=== PATIENT | female | born 1995 | race Caucasian/White ===

== ENCOUNTER 2017-06-17 11:34 | Observation (INO) ==
[2017-06-17] MEDS ORDERED: PHENERGAN IM ONE (13:56)
[2017-06-17 15:14] LABS: UR AMPHETAMINES QUAL NONE DETECTED (NONE DETECT); UR BARBITUATES QUAL NONE DETECTED (NONE DETECT); UR BENZODIAZEPIN QUAL NONE DETECTED (NONE DETECT); UR CANNABINOIDS QUAL NONE DETECTED (NONE DETECT); UR COCAINE QUAL NONE DETECTED (NONE DETECT); UR MDMA QUAL NONE DETECTED (NONE DETECT); UR METHADONE QUAL NONE DETECTED (NONE DETECT); UR METHAMPHETAMINE QUAL NONE DETECTED (NONE DETECT); UR OPIATES QUAL NONE DETECTED (NONE DETECT); UR OXYCODONE QUAL NONE DETECTED (NONE DETECT); UR PCP QUAL NONE DETECTED (NONE DETECT); UR TCA QUAL NONE DETECTED (NONE DETECT)
[2017-06-17 15:23] LABS: BILIRUBIN URINE NEGATIVE (NEGATIVE); BLOOD URINE 1+ (NEGATIVE); CLARITY CLEAR (CLEAR); COLOR YELLOW; GLUCOSE URINE NEGATIVE (NEGATIVE); LEUKOCYTES URINE 2+ (NEGATIVE); NITRITE URINE NEGATIVE (NEGATIVE); PROTEIN URINE 1+(30 mg/dL) mg/dL (NEGATIVE); SP GRAVITY URINE 1.025; UROBILINOGEN URINE 4+(12 mg/dL)
[2017-06-17 15:25] LABS: URINE CULTURE PL NEEDED? YES; URINE EPITHELIAL CELLS >10 /HPF (<10); URINE RBC <10 /HPF (<10)
[2017-06-17 15:26] LABS: URINE CAST NONE SEEN /LPF; URINE CRYSTAL NONE SEEN /HPF; URINE SOURCE CLEAN CATCH
[2017-06-17] MEDS ORDERED: D5W 1,000 ML IV ONE (15:51)
[2017-06-17] MEDS ORDERED: ZOFRAN IV ONE (15:51)
[2017-06-17] MEDS ORDERED: ROCEPHIN 1 GM in NS 50 ML IV ONE (15:51)
[2017-06-17 16:21] LABS: MANUAL DIFF NEEDED? NO
[2017-06-17 16:22] LABS: BASO% 0.2 % (0.0-0.8); EOS# 0.01 X1000 (0.0-0.7); EOS% 0.1 % (0.0-10.0); HEMATOCRIT 42.7 % (37.0-47.0); HEMOGLOBIN 15.1 g/dL (12.0-16.0); IMM GRAN# 0.04 X1000 (0.0-0.04); IMM GRAN% 0.3 % (0.0-0.5); LYMPH# 1.15 X1000 (1.2-3.4); LYMPH% 8.1 % (20.5-51.1); MCH 30.8 PG (27-31); MCHC 35.4 g/dL (33-37); MONO% 6.4 % (1.7-9.3); MPV 9.6 FL (7.4-10.4); NEUT% 84.9 % (42.2-75.2); PLT 292 X1000 (130-400); RBC 4.91 XMIL (4.2-5.4)
[2017-06-17 16:44] LABS: AGAP 15; ALBUMIN 4.5 g/dL (3.5-5.0); ALKALINE PHOSPHATASE 63 U/L (32-104); AMYLASE 86 U/L (20-200); BUN 6 mg/dL (8-22); CALCIUM 9.4 mg/dL (8.8-10.2); CHLORIDE 95 mmol/L (98-107); COSMO 265; GOT 23 U/L (10-30); GPT 22 U/L (10-36); LIPASE 82 U/L (13-60); POTASSIUM 3.3 mmol/L (3.5-5.1); SODIUM 134 mmol/L (136-145); TCO2 24 mmol/L (25-35); TOTAL PROTEIN 8.2 g/dL (6.3-8.3)
[2017-06-17] MEDS ORDERED: KLOR-CON PO ONE (16:47)
--- NOTE | 2017-06-17 17:07 | PROVIDER DOCUMENTATION ---
This chart was entered by Debra Maldonado Scribe, acting as scribe for Sruthi Moore MD. HPI-Abdominal Pain/GI Problem - General Chief Complaint: Nausea/Vomiting Stated Complaint: 10WKS PREG/N/V Time Seen by Provider: 06/17/17 13:49 Source: patient Allergies/Adverse Reactions: Patient Allergies Allergy/AdvReac Type Severity Reaction Status Date / Time No Known Allergies Allergy Verified 06/03/17 18:01 Home Medications: Home Medication List Medication Instructions Recorded Confirmed Last Taken Type Ondansetron HCl [Ondansetron HCl] 4 mg PO Q6H PRN PRN 06/03/17 06/17/17 History 4 MG Nitrofurantoin Macrocrystal 100 mg PO BID 06/17/17 06/17/17 06/17/17 History [Nitrofurantoin] - History of Present Illness-ABD Nature of Presenting Problems: PT is a 21 y/o F that presents to the ED with CC of nausea and vomiting. PT is 10weeks preg and states she has been constantly sick since about 6 weeks. PT has seen OB and denies abdominal pain and bleeding. PT states she was given Zofran for sickness, but it doesn't help. PT states she vomits approx 10x a day. PT recently dx with UTI and currently on macrobid Quality of Pain: reports: none Onset/Duration: reports: gradual, other (4 weeks) Timing: reports: still present Activities at Onset: reports: none Exposure to sick contacts?: No Modifying Factors: improves with: nothing Associated Symptoms: reports: nausea, vomiting. denies: diarrhea, heartburn, shortness of breath Last BM: unsure Rectal Bleeding: reports: none Rectal Pain: reports: none # of Vomiting Episodes: 10 (times a day) Bruising or Bleeding Gums?: No Similar Symptoms Previously?: Yes (PT has been seen 3x in ER for same cc ) Recently seen or treated by another doctor?: Yes Review of Systems - Adult - REVIEW OF SYSTEMS - ADULT Constitutional: denies: chills, fever Eyes: reports: no symptoms reported Ears, Nose, Mouth & Throat: reports: no symptoms reported Cardiovascular: reports: no symptoms reported Respiratory: reports: no symptoms reported Gastrointestinal: reports: nausea, vomiting. denies: abdominal pain, diarrhea Genitourinary: reports: no symptoms reported Musculoskeletal: reports: no symptoms reported Integumentary: reports: no symptoms reported Neurological: reports: no symptoms reported Psychiatric: reports: no symptoms reported Endocrine: reports: no symptoms reported Hematologic/Lymphatic: reports: no symptoms reported Allergic/Immunologic: reports: no symptoms reported All Other Systems: Reviewed and Negative Past History - Adult - PAST MEDICAL HISTORY-ADULT Review of Records: reports: Old Records Reviewed, Nursing Assessment Review, Medications Reviewed - IMMUNIZATION STATUS Childhood Immunizations: See Nurse Assessment Flu Vaccine: See Nurse Assessment Physical Exam-General - PHYSICAL EXAM-ADULT Initial Vital Signs Reviewed: Yes - CONSTITUTIONAL General Appearance: appears well, alert, no apparent distress - EYES Eyes: PERRL/EOMI - HEAD, EARS, NOSE, MOUTH & THROAT HENMT: normocephalic/atraumatic, moist mucous membranes, normal ENT inspection - NECK Neck: non-tender, full range of motion, supple - RESPIRATORY Respiratory: chest non-tender, lungs clear, normal breath sounds - CARDIOVASCULAR Cardiovascular: normal peripheral pulses, regular rate, rhythm, no edema - GASTROINTESTINAL (ABDOMEN) Abdominal Exam: normal bowel sounds, non tender, soft - LYMPHATIC Lymphatic: no adenopathy - MUSCULOSKELETAL Back Exam: normal inspection, no CVA tenderness, no vertebral tenderness Extremity: normal range of motion, non-tender - SKIN Integumentary: normal color, normal turgor, warm/dry - NEUROLOGIC Neurologic: investigation clerk II-XII nml as tested, grossly normal - PSYCHIATRIC Psych/Mental Status: normal mood/affect, normal thought content, oriented x 3 Progress - PLAN OF CARE/RESULTS Progress/Plan/Lab Results: Vital Signs - 8 hr 06/17/17 11:48 Temperature 98 F Pulse Rate 97 H Respiratory Rate 18 Blood Pressure 109/76 O2 Sat by Pulse Oximetry 98 Orders Category Date Time Status TEST-URINE [PREG] Stat Lab 06/17/17 12:[address] W/POSS RFLX CULT [URINALYSIS] Stat Lab 06/17/17 12:13 Uncollected URINE DRUG SCREEN PL Stat Lab 06/17/17 12:13 Uncollected Promethazine [Phenergan] Med 06/17/17 13:56 Discontinued 25 mg IM NOW ONE Result Diagrams: 06/17/17 16:08 06/17/17 16:08 - CONSULTS/PCP/HOSPITALIST Notification #1 *Consult/PCP/Hospitalist*: Dr. Hastings Time Discussed: 17:05 Reason/Comments: Requested OB US and admit to [facility] Departure - Departure Date of Disposition Decision: 06/17/17 Time of Disposition Decision: 17:05 DIAGNOSIS: Hyperemesis gravidarum, 10 weeks gestation of , UTI (urinary tract infection) in in first trimester, Nausea & vomiting Disposition: ADMITTED INPATIENT 09 Certified Medical Emergency: Emergent Condition: Stable Referrals and Follow-Ups: None,PCP [Primary Care Provider] - - Critical Care Note This patient required my direct & personal management of CC.: No Attestation - Physician/ ADE Attestation Patient care was provided by Advanced Practice Provider:: No The physician spent face to face time with patient:: Yes Advanced Practice Provider documentation review:: Supervising physician onsite and consulted in the evaluation and care of this patient. The physician did have a face to face encounter with the patient. This chart was documented by the indicated scribe, (Debra Maldonado, Pina) and accurately reflects the services I performed and decisions made by me, Sruthi Moore MD, as attested by the provider's signature.
--- NOTE | 2017-06-17 18:52 | Diag Imaging Result Doc PS360 ---
EXAM: US OBS COMPLETE < 14 WKS INDICATION: Severe N/V, 10 week preg TECHNIQUE: COMPARISON: None. FINDINGS: There is a single viable intrauterine gestation. A gestational sac and pole are appreciated. There is no evidence of subchorionic hemorrhage. The ovaries are grossly unremarkable. No adnexal masses are appreciated. The cervix is closed. No pelvic free fluid is appreciated. FHR-175 bpm GA by ultrasound-9 weeks 4 days +/- 5 days IMPRESSION: Single viable intrauterine gestation with no gross anomalies appreciated. Electronically signed by Brant Corona 06/17/2017 6:49 PM
[2017-06-17] MEDS ORDERED: ZOFRAN IV PRN ×2 (19:08→22:36)
[2017-06-17] MEDS ORDERED: NS 1,000 ML IV ONE (19:08)
[2017-06-17] MEDS ORDERED: PHENERGAN IV PRN (22:38)
[2017-06-17] MEDS: D5 LR 1,000 ML IV SCH (22:57)
[2017-06-18] MEDS: D5 LR 1,000 ML IV SCH ×3 (03:29→12:59)
[2017-06-18] MEDS ORDERED: ZOFRAN ODT PO PRN (09:33)
[2017-06-18] MEDS ORDERED: PHENERGAN PO PRN (09:33)
--- NOTE | 2017-06-18 10:41 | HISTORY AND PHYSICAL ---
HISTORY OF PRESENT ILLNESS: Patient is a 21-year-old G1 with intrauterine at 10 weeks, who presented to the emergency room with complaints of nausea and vomiting x4 weeks. In the ER, she had ultrasound performed that confirmed 10-week intrauterine . Labs returned significant for a white blood cell count of 14, the potassium of 3.3, with 3+ ketones in her urine. Patient was subsequently admitted for nausea and vomiting in . PAST MEDICAL HISTORY: None. PAST SURGICAL HISTORY: None. OB HISTORY: G1. CREDIT SPECIALIST HISTORY: Noncontributory. SOCIAL HISTORY: No tobacco use. PHYSICAL EXAM: VITAL SIGNS: On arrival, patient was afebrile. Vital signs stable. GENERAL: Patient in no acute distress. ABDOMEN: Soft, nontender. LUNGS: Respirations nonlabored. PLAN: Will admit and give IV fluid hydration, IV antiemetics p.r.n., n.p.o. for now with plans to advance diet. cc: MD Brant Reynolds MD
[2017-06-18 12:52] VITALS: BP 90/45
== END 2017-06-18 14:40 | disposition home or self-care (01) ==
LOC: P.WC 11:34 → P.ED 11:34 → P.WC 22:00
PROVIDERS: ADMIT Obstetrics & Gynecology; ATTEND Obstetrics & Gynecology